=== PATIENT | female | born 1995 | race Caucasian/White ===

== ENCOUNTER 2020-07-25 11:17 | Outpatient (CLI) | payer MEDICAID | END 2020-07-25 12:15 | disposition home or self-care (01) | LOC: D.LDO 11:17 | PROVIDERS: ATTEND Obstetrics & Gynecology | DX: O43.899 Other placental disorders, unspecified trimester (principal) ==

== ENCOUNTER 2020-08-08 15:04 | Outpatient (CLI) | payer MEDICAID | END 2020-08-08 16:35 | disposition home or self-care (01) | LOC: D.LDO 15:04 | PROVIDERS: ATTEND Obstetrics & Gynecology | DX: O43.899 Other placental disorders, unspecified trimester (principal) ==

== ENCOUNTER → 2020-08-15 16:11 | Outpatient (CLI) | payer MEDICAID | END | disposition home or self-care (01) | LOC: D.LDO 16:11 | PROVIDERS: ATTEND Obstetrics & Gynecology | DX: O43.899 Other placental disorders, unspecified trimester (principal) ==

== ENCOUNTER 2020-08-19 12:56 | Outpatient (CLI) | payer MEDICAID | END 2020-08-19 13:15 | disposition home or self-care (01) | LOC: D.LDO 12:56 | PROVIDERS: ATTEND Obstetrics & Gynecology | DX: O43.899 Other placental disorders, unspecified trimester (principal) ==

== ENCOUNTER 2020-08-22 11:54 | Outpatient (CLI) | payer MEDICAID | END 2020-08-22 12:22 | disposition home or self-care (01) | LOC: D.LDO 11:54 | PROVIDERS: ATTEND Obstetrics & Gynecology | DX: O43.899 Other placental disorders, unspecified trimester (principal) ==

== ENCOUNTER 2020-08-29 13:46 | Outpatient (CLI) | payer MEDICAID | END 2020-08-29 15:03 | disposition home or self-care (01) | LOC: D.LDO 13:46 | PROVIDERS: ATTEND Obstetrics & Gynecology | DX: O43.899 Other placental disorders, unspecified trimester (principal) ==

== ENCOUNTER → 2020-09-05 12:41 | Outpatient (CLI) | payer MEDICAID | END | disposition home or self-care (01) | LOC: D.LDO 12:41 | PROVIDERS: ATTEND Obstetrics & Gynecology | DX: O43.899 Other placental disorders, unspecified trimester (principal) ==

== ENCOUNTER 2020-09-12 13:08 | Outpatient (CLI) | payer MEDICAID | END 2020-09-12 14:17 | disposition home or self-care (01) | LOC: D.LABREF 13:08 → D.LDO 13:08 | PROVIDERS: ATTEND Obstetrics & Gynecology | DX: O43.899 Other placental disorders, unspecified trimester (principal) ==

== ENCOUNTER 2020-09-16 11:48 | Outpatient (CLI) | payer MEDICAID | END 2020-09-16 16:18 | disposition home or self-care (01) | LOC: D.LDO 11:48 | PROVIDERS: ATTEND Obstetrics & Gynecology | DX: O35.9XX0 Maternal care for (suspected) fetal abnormality and damage, unspecified, not applicable or unspecified (principal); O43.899 Other placental disorders, unspecified trimester ==

== ENCOUNTER → 2020-09-19 14:59 | Outpatient (CLI) | payer MEDICAID ==
[~2020-09-19 14:59] MED LIST: PRENAVITE1 TAB PO
== END | disposition home or self-care (01) ==
LOC: D.LDO 14:59
PROVIDERS: ATTEND Obstetrics & Gynecology
DX: O43.899 Other placental disorders, unspecified trimester (principal)

== ENCOUNTER → 2020-09-20 20:32 | Outpatient (CLI) | payer MEDICAID ==
[~2020-09-20 20:32] MED LIST changes: +HYDROCODON-ACE1 EAC7 PO; +IBUPROFEN600 MG PO
== END | disposition home or self-care (01) ==
LOC: D.LDO 20:32
PROVIDERS: ATTEND Obstetrics & Gynecology
DX: O47.9 False labor, unspecified (principal)

== ENCOUNTER 2020-09-23 04:57 | Inpatient (IN) | payer MEDICAID ==
[~2020-09-23] VITALS: Ht 160 cm; Wt 64.0 kg
[2020-09-23 05:15] VITALS: BP 134/74; Ht 160 cm; Wt 64.0 kg
[2020-09-23] MEDS ORDERED: PRENAVITE1 TAB PO (05:15)
[2020-09-23 05:42] LABS: HEMATOCRIT 33.9 % (36.0-48.0); HEMOGLOBIN 11.1 g/dL (12-16); MCH 27.5 pg (26.0-34.0); MCHC 32.8 g/dL (31.0-37.0); MCV 83.7 fL (80.0-100.0); RBC 4.06 10x6/uL (4.00-5.40); RDW 14.4 % (11.5-14.5); WBC 15.6 10x3/uL (4.8-10.8)
[2020-09-23 05:51] LABS: UDS - AMPHET NEGATIVE QUAL (NEGATIVE); UDS - BARB NEGATIVE QUAL (NEGATIVE); UDS - BENZO NEGATIVE QUAL (NEGATIVE); UDS - COCAINE NEGATIVE QUAL (NEGATIVE); UDS - OPIATE NEGATIVE QUAL (NEGATIVE); UDS - PCP NEGATIVE QUAL (NEGATIVE); UDS - THC NEGATIVE QUAL (NEGATIVE)
--- NOTE | 2020-09-23 18:25 | NUR ---
TO PT'S ROOM, PT REQUESTS TO REST FOR NOW, SIG OTHER IS ASLEEP ON SOFA. PT REPORTS "MY BUTT AND VAGINA IS STARTING TO HURT". FUNDUS FIRM, U/1, SLIGHTLY DEVIATED TO THE RIGHT, BLADDER PALPATES FULL. PT OFFERED BEDPAN, RIGHT LEG CONTINUES TO BE WEAK, BUT ABLE TO MOVE BOTH LEGS AND FEET AT THIS TIME. PT PLACED ON BEDPAN, VOIDS HALF BEDPANS FULL X 2, PERIAREA CLEANSED WITH WARM WET WASHCLOTHS, PERITOWEL/CHUX CHANGED, NEW ICE PACK PLACED TO PERINEUM, WITH WASHCLOTH OVER ICE PACK, MILD INNER/OUTER LABIA SWELLING NOTED. PT REQUESTS PAIN MEDICATION, SEE EMAR FOR ALL MEDS ADM BY THIS RN. SRUP X 2, CALL LIGHT AND PHONE WITHIN REACH.
[2020-09-23 19:11] VITALS: BP 123/77
--- NOTE | 2020-09-23 19:11 | NUR ---
PT REC'D IN BED AT THIS TIME. STATES PAIN IS 2/10. SALINE LOCK NOTED TO THE RT HAND. FUNDUS FIRM AND MIDLINE. U/2. SMALL LOCHIA NOTED. MILD PERINEAL SWELLING. ICE PACK PLACED. NO ACUTE DISTRESS NOTED. CALL LIGHT IN EASY REACH. Jeni HAAS RN
--- NOTE | 2020-09-23 20:20 | NUR ---
PT UP TO BATHROOM FOR PERICARE. PT VOIDED AND ICE PACK REPLACED. PT AMBULATED TO ROOM 1257 WITH IN CRIB. PT TOLERATED WELL. NO DISTRESS NOTED. Jeni HAAS RN
--- NOTE | 2020-09-23 21:25 | NUR ---
pt rec'd in bed on phone. no needs noted at this time. denies pain. tiki kimball rn
--- NOTE | 2020-09-23 22:25 | NUR ---
PT REC'D IN BED. NURSERY NURSE AT SIDE ASSISTING WITH . DENIES PAIN. NO NEEDS NOTED. Jeni HAAS RN
--- NOTE | 2020-09-23 23:00 | NUR ---
PT UP TO SHOWER AT THIS TIME. PT PROVIDED WITH NEW ICE PACK. NO DISTRESS NOTED. Jeni HAAS RN
--- NOTE | 2020-09-24 00:01 | NUR ---
PT REQUESTING IV TO BE REMOVED AT THIS TIME. IV REMOVED WITH TIP INTACT. NO DISTRESS NOTED. Jeni HAAS RN
--- NOTE | 2020-09-24 01:57 | NUR ---
PT MEDICATED WITH IBUPROFEN AND NORCO FOR PAIN LEVEL OF 7/10. CALL LIGHT IN EASY REACH, Jeni HAAS RN
--- NOTE | 2020-09-24 03:17 | NUR ---
PT UP IN BED AT THIS TIME. DENIES PAIN. NO OTHER NEEDS VOICED. Jeni HAAS RN
--- NOTE | 2020-09-24 05:42 | NUR ---
PT REC'D IN BED RESTING AT THIS TIME. NO DISTRESS NOTED. Jeni HAAS RN
[2020-09-24 06:11] LABS: RAPID PLASMA REAGIN Non Reactive (Non Reactive)
--- NOTE | 2020-09-24 08:15 | NUR ---
THIS RN TO ROOM FOR SHIFT ASSESSMENT. PT SITTING UP IN BED, EATING BRKST. PT RATES PAIN APPROX 7/10 IN PERINEUM AT LAC SITE, REQUESTING TO HAVE MOTRIN AND NORCO BOTH FOR PAIN IT WORKED WELL LAST NIGHT. PT ADMIN BOTH PRN MEDS ORDERED, SEE EMAR FOR DOC. PT DENIES HEAVY LOCHIA OR CLOTS DURING THE NIGHT. INSTRUCTED ON S/S TO REPORT. PT BEGINS . REQUESTS CEREAL AND BABY WIPES WELL. PROVIDED REQUESTED WITH FRESH ICE WATER WELL. WILL RETURN FOR VS AND SHIFT ASSESSMENT WHEN PT FINISHED AND EATING BREAKFAST. SRUx2, CL IN REACH.
--- NOTE | 2020-09-24 08:24 | NUR ---
PT REQUESTS DERMAPLAST, TUCKS, PADS, AND PANTIES. PROVIDED REQUESTED, SEE EMAR FOR DOC.
[2020-09-24 09:40] VITALS: BP 114/77
--- NOTE | 2020-09-24 09:40 | NUR ---
THIS RN TO ROOM FOR SHIFT ASSESSMENT. PT STATES PAIN IS "GETTING THERE", RATES PAIN 4/10, STATES SHE JUST FEELS PERINEAL PAIN WITH MOVEMENT. SHIFT ASSESSMENT COMPLETE, VSS, SEE FLOWSHEET FOR DOC. FF, ML, U/3. SMALL RUBRA LOCHIA, NO CLOTS. REINFORCED TO PT S/S TO REPORT REGARDING LOCHIA FLOW AND SIGNS OF INFECTION AT LACERATION. UNDERSTANDING VERBALIZED. PT DENIES NEEDS. SRUx2, CL IN REACH.
--- NOTE | 2020-09-24 11:53 | NUR ---
THIS RN TO ROOM FOR PT CHECK. PT SITTING UP IN BED, HOLDING . SMILING, TALKING WITH FOB. DENIES PAIN OR ANY NEEDS AT THIS TIME. SRUx2, CL IN REACH.
--- NOTE | 2020-09-24 12:40 | NUR ---
PT CALLS OUT LIBRARIAN SPECIALIST LIGHT FOR TOWELS, TOWELS PROVIDED. PT AMBULATING IN ROOM. DENIES FURTHER NEEDS. SRUx2, CL IN REACH.
--- NOTE | 2020-09-24 13:32 | NUR ---
C/O PERINEAL DISCOMFORT. NORCO GIVEN PER ORDER AND PT REQUEST. HEMORRHOIDS NOTED. MILD BILATERAL LABIAL EDEMA NOTED. SUBLABIAL REPAIR WELL APPROXIMATED, SUTURES INTACT, NO DRAINAGE OR S/S OF INFECTION NOTED. INSTRUCTED ON TUX AND DERMAPLAST USE, VERBALIZES UNDERSTANDING. SIG OTHER AT BEDSIDE, SUPPORTIVE AND ATTENTIVE TO PT AND NEEDS. INFANT RESTING QUIETLY IN OPEN CRIB AT BEDSIDE. BED IN LOW POSITION WITH SRUP X2. CL AND PHONE WITHIN REACH.
--- NOTE | 2020-09-24 13:51 | NUR ---
BF IN HIGH FOWLERS POSITION. PERINEAL DISCOMFORT 10/10, MOTRIN GIVEN PER ORDER AND REQUEST. ICE WATER PROVIDED. DENIES ADDITIONAL NEEDS.
--- NOTE | 2020-09-24 14:50 | NUR ---
DR CONN PHONED TO VERIFY IF HE WANTED CBC ON PT FOR TODAY. ORDER RECEIVED FOR STAT CBC, STATES HE WILL BE DOWN SHORTLY TO ROUND ON PT AND LIKELY D/C TO HOME.
--- NOTE | 2020-09-24 15:05 | NUR ---
LAB TO ROOM FOR ORDERED CBC
[2020-09-24 15:40] LABS: BASOPHILS 0.4 % (0-2); EOSINOPHILS 0.9 % (0-7); HEMATOCRIT 30.6 % (36.0-48.0); HEMOGLOBIN 9.9 g/dL (12-16); LYMPHOCYTES 17.4 % (15-50); MCH 27.2 pg (26.0-34.0); MCHC 32.5 g/dL (31.0-37.0); MCV 83.8 fL (80.0-100.0); MEAN PLATELET VOLUME 7.1 fL (7.4-10.4); MONOCYTES 5.4 % (2-11); NEUTROPHILS 75.9 % (40-80); PLATELET COUNT 411 10x3/uL (130-400); RBC 3.65 10x6/uL (4.00-5.40); RDW 14.6 % (11.5-14.5); WBC 15.8 10x3/uL (4.8-10.8)
[2020-09-24] MEDS ORDERED: IBUPROFEN600 MG PO (16:02)
[2020-09-24] MEDS ORDERED: HYDROCODON-ACE1 EAC7 PO (16:02)
--- NOTE | 2020-09-24 16:12 | NUR ---
DR CONN TO PT ROOM FOR ROUNDING, DISCUSSING D/C INSTRUCTIONS AND S/S TO REPORT. PT REQUESTING PAIN MED FOR RIDE HOME. ORDER RECEIVED FOR NORCO 5/325MG PO x1 NOW, AND PT MAY D/C TO HOME.
--- NOTE | 2020-09-24 16:50 | NUR ---
PT ADMIN NORCO ORDERED BY DR CONN, SEE EMAR FOR DOC. PT GIVEN D/C INSTRUCTIONS WELL APPOINTMENT REMINDER FOR VINEET, AND PRESCRIPTIONS FOR PAIN CONTROL POST D/C TO HOME GIVEN PROVIDED BY DR CONN. PT VERBALIZES UNDERSTANDING, QUESTIONS ANSWERED. PT SIGNS CHART COPIES OF INSTRUCTIONS. INSTRUCTED NURSERY WILL COME DISCHARGE INFANT AND THEN SHE WILL BE TAKEN OUT IN A W/C WITH IN CARSEAT, TO CALL WHEN READY. UNDESTANDING VERBALIZED. SRUx2, CL IN REACH.
== END 2020-09-24 18:30 | disposition home or self-care (01) | DRG 807 ==
LOC: D.LD 04:57
PROVIDERS: ADMIT Obstetrics & Gynecology; ATTEND Obstetrics & Gynecology
PROC: 10907ZC Drainage of Amniotic Fluid, Therapeutic from Products of Conception, Via Natural or Artificial Opening (ICD-10-PCS; principal; 2020-09-23)
PROC: 10E0XZZ Delivery of Products of Conception, External Approach (ICD-10-PCS; 2020-09-23)
PROC: 0HQ9XZZ Repair Perineum Skin, External Approach (ICD-10-PCS; 2020-09-23)
PROC: 3E033VJ Introduction of Other Hormone into Peripheral Vein, Percutaneous Approach (ICD-10-PCS; 2020-09-23)
DX: O70.0 First degree perineal laceration during delivery (principal); Z37.0 Single live birth; Z3A.39 39 weeks gestation of pregnancy